=== PATIENT | male | born 1960 ===

== ENCOUNTER 2016-09-14 17:19 | Inpatient (IN) | payer BC, OTHER ==
[~2016-09-14] VITALS: Ht 177.8 cm; Wt 93.0 kg
--- NOTE | 2016-09-14 04:58 | NUR ---
PRN ATIVAN ADMINISTRATION PATIENT C/O ANXIETY, NOTE RESTLESS, VERBALIZES UNABLE TO SLEEP. PRN ATIVAN GIVEN . ZARIA 7. WILL CONTINUE TO MONITOR Addendum: 09/15/16 at 0707 by TYRESE KWONG LVN ERROR:TIME OF CHARTING
[~2016-09-14 17:19] MED LIST: CLON0.1T14 PO; DICY20TA28 PO; Gabapentin PO; HYDR-3895 PO; QUET200T PO; Sertraline Hcl PO
[2016-09-14 18:54] VITALS: BP 111/56
--- NOTE | 2016-09-14 18:54 | NUR ---
PRE-ASSESSMENT NOTE: 56 yo male admitted for ETOH dependence. VS: 111/56 P: 88 RR 18 Pulse OX: 96% T: 98.2 Pt is alert and oriented X4. Color good, skin warm and dry. Respirations even and unlabored. Pt cooperative. NKA Pt was admitted here Dec 2015. Substance use: ETOH Vodka 1 liter/day X 3 months Last use today 1 liter Vodka. Pt denies any other substance use.
--- NOTE | 2016-09-14 19:20 | NUR ---
ADMISSION NOTE RECEIVED PATIENT IN THE UNIT AT THIS TIME. PATIENT IS 56 YEAR OLD MALE WHO PRESENTS TO [facility] FOR MEDICALLY SUPERVISED WITHDRAWAL FROM ETOH DEPENDENCE. BODY CHECK DONE. SKIN INTACT. NO SKIN BREAKDOWN. LUNGS CLEAR AND BOWEL SOUNDS ACTIVE. ABDOMEN SOFT AND NON-DISTENDED. WEARS EYE GLASSES FOR READING. LAST BOWEL MOVEMENT YESTERDAY. NO DIFFICULTY URINATING. PATIENT REQUESTED TO BE FULL CODE, REGULAR DIET . NO KNOWN ALLERGIES. HEIGHT IS 5'10 AND WEIGHT IS 205 LBS. 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 PATIENT ADMITTED THAT HE NEVER DRINKS NOT UNTIL HE RETIRED FROM BEING A ELECTRIC DEICER INSPECTOR. PATIENT STATES HE DROVE HERE FROM [place]. IT TOOK HIM 7-8 DAYS. PATIENT REPORTS PMH OF ANXIETY AND DEPRESSION. NO SEIZURE HISTORY. PATIENT IS THE SOURCE OF INFORMATION. PATIENT DRINKS VODKA 1 LITER DAILY FOR 3 MONTHS. STARTED DRINKING 3 1/2 YEARS AGO. LAST DRINK WAS 1 LITER ON 09/14/16. PATIENT SMOKES 1 PACK A DAILY. PATIENT'S TREATMENT HISTORY WAS IN [facility] ON APR 30-MAY 07 AND IN [facility] . PATIENT'S PCP IS IN [place]. PATIENT APPEARS TO BE ANXIOUS DURING ADMISSION. CIWA 4. URINE DRUG SCREEN PROVIDED AND RESULTED. PATIENT IS POSITIVE OF BENZO. PATIENT STATES HE TOOK MEDICATION FOR SLEEP YESTERDAY BUT UNABLE TO RECALL THE NAME. PATIENT IS SEEN BY DR. PAGAN IN INTAKE. PLACED PATIENT ON FALL/SEIZURE PRECAUTION. PATIENT ORIENTED TO SURROUNDINGS AND HOW TO USE CALL LIGHT. SAFETY MEASURES IN PLACE. CALL LIGHT IN REACH. WILL CONTINUE TO MONITOR.
[2016-09-14] MEDS ORDERED: LOPERAMIDE HCL 2 MG CAPSULE PO PRN ×2 (19:30)
[2016-09-14] MEDS ORDERED: MIRALAX 17 GM POWD.PACK PO PRN (19:30)
[2016-09-14] MEDS ORDERED: MAG HYDROX/AL HYDROX/SIMETH 30 ML LIQUID UDC PO PRN (19:30)
[2016-09-14] MEDS ORDERED: THIAMINE HCL 200 MG/2 ML VIAL IM ONE (19:30)
[2016-09-14] MEDS ORDERED: IBUPROFEN 400 MG TABLET PO PRN (19:30)
[2016-09-14] MEDS ORDERED: DICYCLOMINE HCL 20 MG TABLET PO PRN (19:30)
[2016-09-14] MEDS ORDERED: LORAZEPAM 1 MG TABLET PO PRN ×2 (19:30)
[2016-09-14] MEDS ORDERED: MAGNESIUM HYDROXIDE 30 ML LIQUID UDC PO PRN (19:30)
[2016-09-14] MEDS ORDERED: ACETAMINOPHEN 325 MG TABLET PO PRN (19:30)
[2016-09-14] MEDS ORDERED: ONDANSETRON 4 MG/2 ML VIAL IM PRN (19:30)
[2016-09-14] MEDS ORDERED: LORAZEPAM 2 MG/1 ML VIAL IM PRN (19:30)
[2016-09-14] MEDS ORDERED: diphenhydrAMINE 50 MG CAPSULE PO PRN (19:30)
[2016-09-14] MEDS ORDERED: ONDANSETRON ODT 4 MG TAB.RAPDIS SL PRN (19:30)
[2016-09-14 19:44] LABS: *AMPHETAMINE, URINE NEGATIVE (NEGATIVE); *BARBITURATE, URINE NEGATIVE (NEGATIVE); *CANNABINOID, URINE NEGATIVE (NEGATIVE); *COCCAINE, URINE NEGATIVE (NEGATIVE); *OPIATE, URINE NEGATIVE (NEGATIVE); *PHENCYCLIDINE SCREEN,URINE NEGATIVE (NEGATIVE)
[2016-09-14] MEDS ORDERED: hydrALAZINE HCL 25 MG TABLET PO PRN (19:45)
[2016-09-14] MEDS: CLONIDINE HCL 0.1 MG TABLET PO PRN (22:06)
[2016-09-14] MEDS: HYDROXYZINE PAMOATE 25 MG CAPSULE PO PRN (22:06)
--- NOTE | 2016-09-14 22:06 | NUR ---
PRN CATAPRES AND VISTARIL ADMINISTRATION/REFUSED THIAMINE INJECTION PATIENT C.O ANXIETY , NOTED RESTLESS AND UNABLE TO SLEEP. PRN CATAPRES AND VISTARIL GIVEN. WILL MONITOR FOR EFFECTIVENESS. PATIENT REFUSED THIAMINE INJECTION. EDUCATE PATIENT ON RISKS/BENEFITS.
[2016-09-14] MEDS ORDERED: HYDROXYZINE PAMOATE 25 MG CAPSULE ONE (22:13)
[2016-09-14] MEDS ORDERED: CLONIDINE HCL 0.1 MG TABLET ONE (22:14)
[2016-09-14 23:06] LABS: BILIRUBIN,TOTAL 0.3 mg/dL (0.2-1.0); CREATININE 1.1 mg/dL (0.6-1.3); MAGNESIUM 1.9 mg/dL (1.8-2.4); POTASSIUM 3.9 mmol/L (3.5-5.1); TOTAL PROTEIN, SERUM 7.5 g/dL (6.4-8.2)
[2016-09-14 23:16] LABS: BASOPHILS # (AUTO) 0.1 K/uL (0.0-8.0); BASOPHILS % (AUTO) 0.9 % (0.0-2.0); EOSINOPHILS # (AUTO) 0.1 K/uL (0.0-0.7); EOSINOPHILS % (AUTO) 2.4 % (0.0-7.0); HEMOGLOBIN 16.9 G/DL (14.0-18.0); LYMPHOCYTES # (AUTO) 2.4 K/UL (0.8-4.8); LYMPHOCYTES % (AUTO) 41.7 % (20.5-51.5); MEAN CORPUSCULAR HEMOGLOBIN 33.3 UUG (27.0-31.0); MEAN CORPUSCULAR HGB CONC 35 g/dL (32.0-37.0); MEAN CORPUSCULAR VOLUME 94.5 FL (82.0-92.0); MONOCYTES # (AUTO) 0.5 K/UL (0.1-1.30); MONOCYTES % (AUTO) 9.6 % (0.0-11.0); NEUTROPHILS # (AUTO) 2.6 K/UL (1.8-8.9); NEUTROPHILS % (AUTO) 45.4 % (38.5-71.5); PLATELET COUNT (AUTO) 166 K/UL (150-450); RED BLOOD CELL COUNT(AUTO) 5.08 MIL/UL (4.7-6.1); WHITE BLOOD COUNT (AUTO) 5.7 K/UL (4.0-11.2)
[2016-09-14 23:17] LABS: THYROID STIMULATING HORMONE 4.691 mIU/mL (0.358-3.740)
[2016-09-14] MEDS ORDERED: MILK175C4 PO (23:53)
[2016-09-14] MEDS ORDERED: ACAM333T8 PO (23:53)
[2016-09-14] MEDS ORDERED: LEVO50TA8 PO (23:53)
[2016-09-14] MEDS ORDERED: [UNRECOGNIZED DRUG - OTHER] (23:53)
[2016-09-14] MEDS ORDERED: NALT50TA PO (23:53)
[2016-09-14] MEDS ORDERED: TRAZ-147 PO (23:53)
[2016-09-14] MEDS ORDERED: DISU250T7 PO (23:53)
[2016-09-14] MEDS ORDERED: LAMO200T PO (23:53)
[2016-09-14] MEDS ORDERED: [UNRECOGNIZED DRUG - CODE] TP (23:53)
[2016-09-14] MEDS ORDERED: IBUP200C92 PO (23:53)
[2016-09-14] MEDS ORDERED: SILD100T PO (23:53)
[2016-09-15] VITALS: BP 115/68
[2016-09-15 04:00] VITALS: BP 129/75
--- NOTE | 2016-09-15 04:58 | NUR ---
PRN ATIVAN ADMINISTRATION PATIENT C/O ANXIETY, NOTE RESTLESS, VERBALIZES UNABLE TO SLEEP. PRN ATIVAN GIVEN . CIWA 7. WILL CONTINUE TO MONITOR
[2016-09-15] MEDS ORDERED: LORAZEPAM 1 MG TABLET ONE (05:06)
--- NOTE | 2016-09-15 05:58 | NUR ---
PRN ATIVAN RE-ASSESSMENT PATIENT IN BED. PATIENT RELAXED. PER PATIENT ATIVAN HELPFUL. ANXIETY SUBSIDED. WILL CONTINUE TO MONITOR CIWA 3.
--- NOTE | 2016-09-15 07:07 | NUR ---
END OF SHIFT NOTE PATIENT IS A 56 YEAR OLD MALE, ADMITTED FOR ETOH DEPENDENCE. PATIENT IS FULL CODE, REGULAR DIET AND NO KNOWN ALLERGY. PATIENT DRINKS 1 LITER OF VODKA DAILY FOR 3 MONTHS. PATIENT WAS PLACED ON 5 DAYS ATIVAN TAPER TO START TODAY. PATIENT REPORTED PMH OF ANXIETY AND DEPRESSION. NO SEIZURE HISTORY . PATIENT WAS GIVEN PRN CLONIDINE AT 2206 ,VISTARIL AT 2206 AND ATIVAN AT 0458 DURING SHIFT. LAST CIWA 3. PATIENT COMPLIANT WITH MEDICATIONS . ON FALL/SEIZURE PRECAUTION . SAFETY MEASURES IN PLACE. REMAIN FREE OF INJURY. NO ADVERSE REACTION TO MEDICATIONS. CALL LIGHT IN REACH. WILL CONTINUE TO MONITOR. SLEPT 6 HOURS. FLUID INTAKE OF 1,050 ML. VOIDED X 1. NO BM.
--- NOTE | 2016-09-15 07:43 | NUR ---
START OF SHIFT NOTE: Received report from material handler 1st shift nurse. 56 yo male admitted 09-14-16 for ETOH dependence. Pt to start 5 day Ativan taper today. Pt is alert and oriented X4. Color good, skin warm and dry. Respirations even and unlabored. Pt resting in bed. Safety precautions observed. Call light within reach.
[2016-09-15] MEDS: FOLIC ACID 1 MG TABLET PO SCH (07:55)
[2016-09-15] MEDS: LORAZEPAM 1 MG TABLET PO SCH ×4 (07:55→21:14)
[2016-09-15] MEDS: THIAMINE HCL 100 MG TABLET PO SCH (07:56)
[2016-09-15] MEDS: MULTIVITAMINS,THERAPEUTIC TABLET PO SCH (07:56)
[2016-09-15] MEDS: GABAPENTIN 300 MG CAPSULE PO SCH ×3 (07:56→16:11)
--- NOTE | 2016-09-15 07:58 | NUR ---
VSS CIWA 7 Pt c/o anxiety, hand tremors. Pt also c/o stomach cramping. Bemtyl 20mg po prn administered.
[2016-09-15 08:00] VITALS: BP 122/82
[2016-09-15] MEDS ORDERED: TUBERCULIN,PURIF.PROT.DERIV. 5 TU/0.1 ML TEST ID ONE (09:00)
--- NOTE | 2016-09-15 09:00 | NUR ---
Pt states stomach cramping relieved by Bentyl prn
--- NOTE | 2016-09-15 12:28 | NUR ---
VSS CIWA 6 c/o tremors and anxiety
[2016-09-15 12:55] VITALS: BP 117/56
--- NOTE | 2016-09-15 16:14 | NUR ---
VSS CIWA 8 c/o anxiety and tremors
[2016-09-15 17:53] VITALS: BP 141/86
--- NOTE | 2016-09-15 18:41 | NUR ---
END OF SHIFT NOTE: Report given to maintenance technician 3rd shift nurse . 56 yo male admitted 09-14-16 for ETOH dependence. Pt started a 5 day Ativan taper today. Tolerating well. Pt is alert and oriented X4. Color good, skin warm and dry. Respirations even and unlabored. Vital signs have remained stable throughout shift. Last CIWA 8 @ 1700. Pt resting in bed. Safety precautions observed. Call light within reach.
[2016-09-15 20:00] VITALS: BP 145/84
--- NOTE | 2016-09-15 20:03 | NUR ---
START OF SHIFT NOTE Pt is a 56 y/o male admitted for ETOH dependence. Pt has NKA but reported a PMH of anxiety and depression. Per day shift nurse pt was placed on a 5 day Ativan taper and is tolerating medication well with no s/e or a/r reported. Pt received Bentyl 20 mg PO PRN during the day shift. Last CIWA: 8 (1600). At this time pt is laying in bed watching television. Pt stated " I'm okay. Kind of achy." Pt denied any other discomfort. Pt was encouraged to notify staff of any changes in condition or of any concerns. Pt verbalized an understanding. All safety measures in place. Will monitor for effectiveness.
[2016-09-15] MEDS: QUETIAPINE FUMARATE 200 MG TABLET PO SCH (21:16)
--- NOTE | 2016-09-15 21:22 | NUR ---
RN note PRN Robaxin Pt c/o generalized body aches=09/13. Contacted Dr. Miller and ordered Robaxin 750 mg PO Q8H PRN. Entered at [facility] and primary nurse to administer.
[2016-09-15] MEDS ORDERED: METHOCARBAMOL 750 MG TABLET ONE (21:36)
[2016-09-15] MEDS: METHOCARBAMOL 750 MG TABLET PO PRN (21:43)
--- NOTE | 2016-09-15 21:43 | NUR ---
ROBAXIN PRN ADMINISTRATION Pt stated " I'm having body aches. 09/13. What can I have for that?" Robaxin 750 mg PO PRN was given. Pt was encouraged to notify staff of any changes in condition or of any concerns. Pt verbalized an understanding. All safety measures in place. Will monitor for effectiveness.
[2016-09-15] MEDS: CLONIDINE HCL 0.1 MG TABLET PO PRN (21:57)
--- NOTE | 2016-09-15 21:57 | NUR ---
CLONIDINE PRN ADMINISTRATION Pt's blood pressure is 145/84. Pt denies any dizziness, blurred vision, headache, nausea, or vomiting, but reported " I feel a little uncomfortable could I have some Clonidine? Clonidine 0.1 mg PO PRN was given. Pt was encouraged to notify staff of any changes in condition or of any further concerns. Pt verbalized an understanding. All safety measures in place. Will monitor for effectiveness.
--- NOTE | 2016-09-15 22:43 | NUR ---
LOKI PRN REASSESSMENT Pt stated " I'm not aching that much anymore. I would say a 05/16." PRN effective. All safety measures in place. Will continue to monitor.
--- NOTE | 2016-09-15 22:57 | NUR ---
CLONIDINE PRN REASSESSMENT Pt's blood pressure is currently 139/81. Pt stated " I feel better." PRN effective. Pt was encouraged to notify staff of any changes in condition or of any further concerns. Pt verbalized an understanding. All safety measures in place. Will continue to monitor.
[2016-09-16] VITALS: BP 145/85
[2016-09-16] MEDS: HYDROXYZINE PAMOATE 25 MG CAPSULE PO PRN (00:55)
--- NOTE | 2016-09-16 00:55 | NUR ---
BENADRYL AND VISTARIL PRN ADMINISTRATION Pt stated " I can't sleep and I'm anxious." Benadryl 50 mg PO PRN and Vistaril 25 mg PO PRN was given. Pt was encouraged to notify staff of any changes in condition or of any concerns. Pt verbalized an understanding. All safety measures in place. Will monitor for effectiveness.
--- NOTE | 2016-09-16 01:55 | NUR ---
BENADRYL AND VISTARIL PRN REASSESSMENT Pt stated " I just fell asleep. I'm okay now." PRNS effective. Pt was encouraged to notify staff of any changes in condition or of any concerns. Pt verbalized an understanding. All safety measures in place. Will continue to monitor.
--- NOTE | 2016-09-16 04:00 | NUR ---
CIWA AND VITALS REFUSED Pt refused to be assessed and have vitals taken at this time. Pt was encouraged x 3 with risks and benefits explained, but the pt still refused. All safety measures in place. Will continue to monitor. Addendum: 09/16/16 at 0402 by GABRIEL TOMPKINS LVN Amended: Links added.
[2016-09-16] MEDS: LEVOTHYROXINE SODIUM 50 MCG TABLET PO SCH (07:00)
--- NOTE | 2016-09-16 07:14 | NUR ---
END OF SHIFT NOTE Pt is a 56 y/o male admitted for ETOH dependence. Pt has NKA but reported a PMH of anxiety and depression. Pt continues on a 5 day Ativan taper and is tolerating medication well with no s/e or a/r reported. Pt received Clonidine 0.1 mg PO PRN, Vistaril 50 mg PO PRN, Benadryl 50 mg PO PRN, and Robaxin 750 mg PO PRN during the shift. Last CIWA: 3 (1600). Pt slept for a total of 8 hours. All safety measures in place. Will endorse to the oncoming nurse.
--- NOTE | 2016-09-16 07:43 | NUR ---
Start of shift note; Received report from night nurse. Patient is a 56 year old male admitted on 09/14/16 for ETOH dependence. Patient was placed on a 5 day Ativan taper currently on his 2nd day of taper. Patient reported history of anxiety and depression. Patient's last CIWA score is 3 at 0400 per endorsement. Patient slept for 8 hours. Patient is currently resting with eyes closed, respiration even and unlabored. Patient is on a full code status, regular diet, NKA. Will continue to monitor patient.
[2016-09-16 08:00] VITALS: BP 133/86
[2016-09-16 08:09] LABS: HEPATITIS B SURFACE AG Negative (Negative)
[2016-09-16] MEDS: THIAMINE HCL 100 MG TABLET PO SCH (08:17)
[2016-09-16] MEDS: LORAZEPAM 1 MG TABLET PO SCH ×3 (08:17→20:34)
[2016-09-16] MEDS: GABAPENTIN 300 MG CAPSULE PO SCH ×4 (08:17→16:45)
[2016-09-16] MEDS: MULTIVITAMINS,THERAPEUTIC TABLET PO SCH (08:18)
[2016-09-16] MEDS: LAMOTRIGINE 200 MG TABLET PO SCH (08:18)
[2016-09-16] MEDS: SERTRALINE HCL 50 MG TABLET PO SCH (08:18)
[2016-09-16] MEDS: FOLIC ACID 1 MG TABLET PO SCH (08:18)
[2016-09-16] MEDS ORDERED: [UNRECOGNIZED DRUG - OTHER] PO SCH (09:00)
[2016-09-16 12:00] VITALS: BP 123/88
[2016-09-16 16:00] VITALS: BP 134/73
--- NOTE | 2016-09-16 18:00 | NUR ---
End of shift note; Patient is AOX4. Patient is a 56 year old male admitted on 09/14/16 for ETOH dependence. Patient was placed on a 5 day Ativan taper currently on his 2nd day of taper. Patient reported history of anxiety and depression. Patient's last CIWA score is 5 at 1600. Patient remained compliant with treatment plan. Medications were effective in reducing withdrawal symptoms. All safety measures secured. Met all needs.
[2016-09-16 20:00] VITALS: BP 125/77
--- NOTE | 2016-09-16 20:00 | NUR ---
START OF SHIFT NOTE Pt is a 56 y/o male admitted for ETOH dependence. Pt has NKA but reported a PMH of anxiety and depression. Per day shift nurse pt continues on a 5 day Ativan taper and is tolerating medication well with no s/e or a/r reported. Pt didn't receive any PRNS during the day shift. Last CIWA: 5 (1600). At this time pt is laying in bed watching television. Pt stated " I've been sleep most of the day. Im okay." Pt denies any pain/discomfort. Pt was encouraged to notify staff of any changes in condition or of any concerns. Pt verbalized an understanding. All safety measures in place; side rails up x 2, bed locked and in low position, and call light within reach Will monitor for effectiveness.
--- NOTE | 2016-09-16 20:34 | NUR ---
MOTRIN PRN ADMINISTRATION. Pt stated " My back and side hurts." Pt rated pain level 7/10. Motrin 600 mg PO PRN given. Pt was encouraged to notify staff of any changes in condition or of any concerns. Pt verbalized an understanding. All safety measures in place. Will monitor for effectiveness.
[2016-09-16] MEDS: QUETIAPINE FUMARATE 200 MG TABLET PO SCH (20:35)
--- NOTE | 2016-09-16 21:34 | NUR ---
EMELINA PRN REASSESSMENT Pt stated " The pain went away a little bit. It's about a 3/10." PRN effective. Pt was encouraged to notify staff of any changes in condition or of any concerns. Pt verbalized an understanding. All safety measures in place. Will continue to monitor.
--- NOTE | 2016-09-17 | NUR ---
CIWA AND VITALS REFUSED Pt refused to be assessed and have vitals taken at this time. Pt was encouraged x 3 with risks and benefits explained, but the pt still declined. All safety measures in place. Will continue to monitor. Addendum: 09/17/16 at 0617 by GABRIEL TOMPKINS LVN Amended: Links added.
--- NOTE | 2016-09-17 07:06 | NUR ---
END OF SHIFT NOTE Pt is a 56 y/o male admitted for ETOH dependence. Pt has NKA but reported a PMH of anxiety and depression. Pt continues on a 5 day Ativan taper and is tolerating medication well with no s/e or a/r reported. Pt received Motrin 400 mg PO PRN during the shift. Last CIWA: 5 (1999). Pt slept for a total of 8 hours. All safety measures in place. Will endorse to the oncoming nurse.
[2016-09-17] MEDS: LEVOTHYROXINE SODIUM 50 MCG TABLET PO SCH (07:12)
--- NOTE | 2016-09-17 07:38 | NUR ---
START OF SHIFT NOTE: Received report from boat buffer plastic nurse. 56 yo male admitted 09-14-16 for ETOH dependence. Pt on a 5 day Ativan taper . Tolerating well. Pt is alert and oriented X4. Color good, skin warm and dry. Respirations even and unlabored. Pt resting in bed. Safety precautions observed. Call light within reach.
--- NOTE | 2016-09-17 08:45 | NUR ---
MARTHA MANZANARESWA 4 Pt states "I feel better."
[2016-09-17] MEDS: FOLIC ACID 1 MG TABLET PO SCH (08:53)
[2016-09-17] MEDS: SERTRALINE HCL 50 MG TABLET PO SCH (08:53)
[2016-09-17] MEDS: THIAMINE HCL 100 MG TABLET PO SCH (08:53)
[2016-09-17] MEDS: LAMOTRIGINE 200 MG TABLET PO SCH (08:53)
[2016-09-17] MEDS: MULTIVITAMINS,THERAPEUTIC TABLET PO SCH (08:53)
[2016-09-17] MEDS: GABAPENTIN 300 MG CAPSULE PO SCH ×3 (08:53→17:12)
[2016-09-17] MEDS: LORAZEPAM 1 MG TABLET PO SCH ×4 (08:53→20:48)
[2016-09-17 09:06] VITALS: BP 98/65
--- NOTE | 2016-09-17 10:18 | NUR ---
Pt c/o nausea. Zofran 4mg sl given prn
[2016-09-17] MEDS ORDERED: LORAZEPAM 1 MG TABLET PO ONE (10:45)
--- NOTE | 2016-09-17 11:17 | NUR ---
Pt states nausea improved after Zofran prn
--- NOTE | 2016-09-17 12:00 | NUR ---
Ativan 1mg po prn given CIWA 7
--- NOTE | 2016-09-17 13:00 | NUR ---
Pt states less anxious after Ativan 1mg po X1
--- NOTE | 2016-09-17 14:21 | NUR ---
Therapist encouraged client to continue his daily group participation. Client stated he would attend the next group.
[2016-09-17 15:15] VITALS: BP 98/65
--- NOTE | 2016-09-17 17:00 | NUR ---
VSS CIWA 7 major complaint is anxiety
[2016-09-17 17:30] VITALS: BP 121/81
--- NOTE | 2016-09-17 18:34 | NUR ---
END OF SHIFT NOTE: Report given to material handler 2nd shift nurse. 56 yo male admitted 09-14-16 for ETOH dependence. Pt on a 5 day Ativan taper . Tolerating well. Pt is alert and oriented X4. Color good, skin warm and dry. Respirations even and unlabored. Vital signs have remained stable throughout shift. Last CIWA 7@ 1700. Pt received Zofran 4mg sl prn @ 1015. Also received extra dose of Ativan 1mg po @ 1200. Pt attended all group activities. Safety precautions observed. Call light within reach.
[2016-09-17 20:00] VITALS: BP 138/96
--- NOTE | 2016-09-17 20:04 | NUR ---
START OF SHIFT NOTE Pt is a 56 y/o male admitted for ETOH dependence. Pt has NKA but reported a PMH of anxiety and depression. Per day shift nurse pt continues on a 5 day Ativan taper and is tolerating medication well with no s/e or a/r reported. Pt received Ativan 1 mg PO x1 and Zofran 4 mg ODT PRN during the shift. Last CIWA: 7 (1600). At this time is sitting upright in bed. Pt stated " I feel okay today. I need my sheets changed." Pt denies any pain/discomfort. Linen was changed. Pt was encouraged to notify staff of any changes in condition or of any concerns. Pt verbalized an understanding. All safety measures in place; side rails up x 2, bed locked and in low position, and call light within reach Will monitor for effectiveness.
[2016-09-17] MEDS: QUETIAPINE FUMARATE 200 MG TABLET PO SCH (20:48)
[2016-09-17] MEDS: CLONIDINE HCL 0.1 MG TABLET PO PRN (20:48)
--- NOTE | 2016-09-17 20:48 | NUR ---
CLONIDINE PRN ADMINISTRATION Pt's blood pressure is currently 138/96. Pt stated " I just feel a little light headed. Can I have some Clonidine?" Clonidine 0.1 mg PO PRN was given. Pt was encouraged to notify staff of any changes in condition or of any concerns and to increase fluids and stay in bed. Pt verbalized an understanding. All safety measures in place. Will monitor for effectiveness.
--- NOTE | 2016-09-17 21:48 | NUR ---
CLONIDINE PRN REASSESSMENT Pt's blood pressure is now 130/88. Pt stated " I feel better. I've been drinking water." PRN effective. All safety measures in place. Will continue to monitor.
[2016-09-18] VITALS: BP 135/84
--- NOTE | 2016-09-18 04:00 | NUR ---
CIWA AND VITALS REFUSED Pt refused to be assessed and have vitals taken at this time. Pt was encouraged x 3 with risks and benefits explained, but the pt still refused. All safety measures in place. Will continue to monitor. Addendum: 09/18/16 at 0702 by GABRIEL TOMPKINS LVN Amended: Links added.
--- NOTE | 2016-09-18 07:04 | NUR ---
END OF SHIFT NOTE Pt is a 56 y/o male admitted for ETOH dependence. Pt has NKA but reported a PMH of anxiety and depression. Pt continues on a 5 day Ativan taper and is tolerating medication well with no s/e or a/r reported. Pt received Clonidine 0.1 mg PO PRN during the shift. Last CIWA: 2 (0000). Pt slept for a total of 8 hours. All safety measures in place. Will endorse to the oncoming nurse.
[2016-09-18] MEDS: LEVOTHYROXINE SODIUM 50 MCG TABLET PO SCH (07:15)
--- NOTE | 2016-09-18 07:59 | NUR ---
START OF SHIFT Pt 56 y/o male admitted for etoh dependence. Pt received in room on bed awake. Pt alert and oriented to name, place, and time. Perrla. Skin warm and slightly moist to touch. Respirations even and unlabored. Pt slightly anxious , with pressured speech noted. It was reported that pt slept for 8 hours last night. Bed on lowest position with side rails x2 up for safety. Call light within reach. No distress noted at this time.
[2016-09-18] MEDS: MULTIVITAMINS,THERAPEUTIC TABLET PO SCH (09:14)
[2016-09-18] MEDS: LORAZEPAM 1 MG TABLET PO SCH ×3 (09:14→21:02)
[2016-09-18] MEDS: GABAPENTIN 300 MG CAPSULE PO SCH ×3 (09:14→16:19)
[2016-09-18] MEDS: SERTRALINE HCL 50 MG TABLET PO SCH (09:14)
[2016-09-18] MEDS: THIAMINE HCL 100 MG TABLET PO SCH (09:14)
[2016-09-18] MEDS: FOLIC ACID 1 MG TABLET PO SCH (09:14)
[2016-09-18] MEDS: LAMOTRIGINE 200 MG TABLET PO SCH (09:14)
[2016-09-18 09:36] VITALS: BP 128/70
--- NOTE | 2016-09-18 11:57 | NUR ---
NSG ENTRY Pt observed walking around in hallways.
[2016-09-18 12:00] VITALS: BP 136/91
[2016-09-18 17:12] VITALS: BP 123/75
--- NOTE | 2016-09-18 18:00 | NUR ---
END OF SHIFT Pt 56 y/o male admitted for etoh dependence. Pt alert and oriented to name, place, and time. Perrla. Skin warm and slightly moist to touch. Respirations even and unlabored. Pt slightly anxious , with pressured speech noted. Pt observed isolative to room this morning, but did attend group acitivty today. Pt medication compliant and tolerated well. No ASE noted. Bed on lowest position with side rails x2 up for safety. Call light within reach. No distress noted at this time.
[2016-09-18 20:00] VITALS: BP 136/88
--- NOTE | 2016-09-18 20:00 | NUR ---
START OF SHIFT NOTE PATIENT ALERT AND ORIENTED X 4. RESPIRATION EVEN AND UNLABORED. PATIENT C/O ANXIETY. NO N/V. PATIENT DENIES ANY PAIN. PATIENT WITH FLAT AFFECT MOOD. RECEIVED REPORT FROM DAY SHIFT NURSE. PATIENT IS A 56 YEAR OLD MALE, ADMITTED FOR ETOH DEPENDENCE. PATIENT IS ON 4TH DAY OF HIS 5 DAY ATIVAN TAPER. PATIENT IS FULL CODE, REGULAR DIET AND NO KNOWN ALLERGY. UPON ADMISSION, PATIENT DRINKS 1 LITER OF VODKA DAILY FOR 3 MONTHS. PATIENT REPORTED PMH OF ANXIETY, DEPRESSION . NO SEIZURE HISTORY. SKIN INTACT. PATIENT DID NOT REQUIRE ANY PRN MEDICATION DURING THE DAY. LAST CIWA 2. SAFETY MEASURES IN PLACE. CALL LIGHT IN REACH. WILL CONTINUE TO MONITOR. Addendum: 09/19/16 at 0017 by TYRESE KWONG LVN CLARIFICATION: PATIENT C/O GENERALIZED BODY ACHES 11/13.
[2016-09-18] MEDS: QUETIAPINE FUMARATE 200 MG TABLET PO SCH (21:02)
[2016-09-18] MEDS: METHOCARBAMOL 750 MG TABLET PO PRN (21:02)
--- NOTE | 2016-09-18 21:02 | NUR ---
PRN ROBAXIN ADMINISTRATION PATIENT C/O GENERALIZED BODY ACHES 11/13. PRN ROBAXIN GIVEN. WILL MONITOR FOR EFFECTIVENESS
--- NOTE | 2016-09-18 22:02 | NUR ---
PRN ROBAXIN RE-ASSESSMENT PATIENT STATES ROBAXIN IS HELPFUL. PAIN SUBSIDED. PAIN LEVEL 2/10, TOLERABLE.
[2016-09-19] VITALS: BP 147/88
--- NOTE | 2016-09-19 04:00 | NUR ---
CIWA/VS PATIENT REFUSED VS. CIWA UNABLE TO COMPLETE. RESPIRATION EVEN AND UNLABORED. RR. 14. SAFETY MEASURES IN PLACE. CALL LIGHT IN REACH. WILL CONTINUE TO MONITOR
--- NOTE | 2016-09-19 07:11 | NUR ---
END OF SHIFT NOTE PATIENT REMAIN ALERT AND ORIENTED X 4. RESPIRATION EVEN AND UNLABORED. PATIENT C/O ANXIETY, NO N/V, GENERALIZED BODY ACHE 8/10 DURING SHIFT. PATIENT WITH FLAT AFFECT MOOD. PATIENT IS A 56 YEAR OLD MALE, ADMITTED FOR ETOH DEPENDENCE. PATIENT IS ON 4TH DAY OF HIS 5 DAY ATIVAN TAPER, TOLERATED WELL. NO ADVERSE REACTION. PATIENT IS FULL CODE, REGULAR DIET AND NO KNOWN ALLERGY. UPON ADMISSION, PATIENT DRINKS 1 LITER OF VODKA DAILY FOR 3 MONTHS. PATIENT REPORTED PMH OF ANXIETY, DEPRESSION . NO SEIZURE HISTORY. SKIN INTACT. PATIENT COMPLAINT WITH MEDICATION AND TREATMENT PLAN. REMAIN FREE OF INJURY. VS WNL. PATIENT WAS GIVEN PRN ROBAXIN AT 2102. LAST CIWA 1 . SAFETY MEASURES IN PLACE. CALL LIGHT IN REACH. WILL CONTINUE TO MONITOR. SLEPT 7 HOURS. FLUID INTAKE 947 ML. VOIDED X 2 . NO BM
--- NOTE | 2016-09-19 07:12 | NUR ---
Start of Shift Notes: Received patient in his room. Alert and oriented x 4. Able to make needs known. Respirations even and unlabored. No SOB noted. Skin warm and dry to touch. Abdomen soft and non-distended with (+) BS in all 4 quadrants. No complains of N/V/D or constipation noted. Voids independently with steady gait. Patient is a 56 year old male admitted for ETOH dependence who was placed on a 5-day Ativan taper as ordered. No adverse reactions noted. Has past medical hx of anxiety and depression. Educated patient on his current plan of care for the day and his medication regimen. Encouraged oral fluid intake and encouraged group participation to learn new skills to prevent relapse.
[2016-09-19] MEDS: LEVOTHYROXINE SODIUM 50 MCG TABLET PO SCH (07:25)
[2016-09-19 08:00] VITALS: BP 104/64
[2016-09-19] MEDS: MULTIVITAMINS,THERAPEUTIC TABLET PO SCH (08:49)
[2016-09-19] MEDS: SERTRALINE HCL 50 MG TABLET PO SCH (08:49)
[2016-09-19] MEDS: FOLIC ACID 1 MG TABLET PO SCH (08:49)
[2016-09-19] MEDS: GABAPENTIN 300 MG CAPSULE PO SCH ×3 (08:49→16:41)
[2016-09-19] MEDS: THIAMINE HCL 100 MG TABLET PO SCH (08:49)
[2016-09-19] MEDS: LAMOTRIGINE 200 MG TABLET PO SCH (08:49)
[2016-09-19] MEDS: LORAZEPAM 1 MG TABLET PO SCH ×2 (08:49→20:41)
[2016-09-19 12:00] VITALS: BP 104/64
--- NOTE | 2016-09-19 15:02 | NUR ---
Therapist advised client of group times. Client said he would attend all of them.
[2016-09-19 16:00] VITALS: BP 112/77
--- NOTE | 2016-09-19 18:55 | NUR ---
End of Shift Notes: Patient is a 56 year old male admitted for ETOH dependence who was placed on a 5-day Ativan taper as ordered. No adverse reactions noted. Patient is tolerating taper well. Prior to admission, patient was using 1L of Vodka daily x 3 months. VS monitored closely q 4 hours. No significant abnormalities noted. Withdrawal symptoms were closely monitored. Initial CIWA 1, patient presented with mild tremors and sweating. Last CIWA 2. Per patient, Ativan has been helping him with his withdrawal symptoms. Participated in group and activities. Compliant with care and treatment. On fall and seizure precautions. Will continue to monitor closely.
[2016-09-19 20:00] VITALS: BP 121/70
--- NOTE | 2016-09-19 20:00 | NUR ---
START OF SHIFT NOTE PATIENT IN HIS ROOM, PATIENT PRESENTS FLAT AFFECT MOOD. PATIENT C/O ANXIETY, PAIN ON RIGHT SIDE OF BODY 09/13. NO N/V. PATIENT STATES HE DID NOT GO TO ANY GROUPS. PATIENT ENCOURAGED TO ATTEND AND TO PARTICIPATE. RECEIVED REPORT FROM DAY SHIFT NURSE. PATIENT IS A 56 YEAR OLD MALE, ADMITTED FOR ETOH DEPENDENCE. PATIENT IS ON 5TH DAY OF HIS 5 DAY ATIVAN TAPER. PATIENT IS FULL CODE, REGULAR DIET AND NO KNOWN ALLERGY. UPON ADMISSION, PATIENT DRINKS 1 LITER OF VODKA DAILY FOR 3 MONTHS. PATIENT REPORTED PMH OF ANXIETY, DEPRESSION . NO SEIZURE HISTORY. SKIN INTACT. PATIENT DID NOT REQUIRE ANY PRN MEDICATION DURING THE DAY. LAST CIWA 2. SAFETY MEASURES IN PLACE. CALL LIGHT IN REACH. WILL CONTINUE TO MONITOR.
[2016-09-19] MEDS: METHOCARBAMOL 750 MG TABLET PO PRN (20:41)
[2016-09-19] MEDS: QUETIAPINE FUMARATE 200 MG TABLET PO SCH (20:41)
--- NOTE | 2016-09-19 20:41 | NUR ---
PRN ROBAXIN ADMINISTRATION PATIENT C/O PAIN ON RIDE SIDE OF BODY 09/13. PRN ROBAXIN GIVEN. WILL MONITOR EFFECTIVENESS
--- NOTE | 2016-09-19 20:41 | NUR ---
PRN ROBAXIN RE-ASSESSMENT PATIENT ROBAXIN HELPFUL.PAIN SUBSIDED 2/10, TOLERABLE. WILL CONTINUE TO MONITOR.
[2016-09-20] VITALS: BP 115/72
[2016-09-20 04:00] VITALS: BP 109/67
[2016-09-20] MEDS: LEVOTHYROXINE SODIUM 50 MCG TABLET PO SCH (06:12)
--- NOTE | 2016-09-20 07:07 | NUR ---
END OF SHIFT NOTE PATIENT REMAIN ALERT AND ORIENTED X 4. RESPIRATION EVEN AND UNLABORED. PATIENT REMAIN STABLE. PATIENT PRESENTS FLAT AFFECT MOOD. PATIENT C/O ANXIETY, PAIN ON RIGHT SIDE OF BODY 09/13. NO N/V. PATIENT STATES HE DID NOT GO TO ANY GROUPS DURING SHIFT. PATIENT ENCOURAGED TO ATTEND AND TO PARTICIPATE. PATIENT IS A 56 YEAR OLD MALE, ADMITTED FOR ETOH DEPENDENCE. PATIENT IS ON 5TH DAY OF HIS 5 DAY ATIVAN TAPER, TOLERATED WELL. NO ADVERSE REACTION. PATIENT IS FULL CODE, REGULAR DIET AND NO KNOWN ALLERGY. UPON ADMISSION, PATIENT DRINKS 1 LITER OF VODKA DAILY FOR 3 MONTHS. PATIENT REPORTED PMH OF ANXIETY, DEPRESSION . NO SEIZURE HISTORY. SKIN INTACT. PATIENT WAS GIVEN PRN ROBAXIN AT 2040 . LAST CIWA 1 AT 0400. PATIENT COMPLIANT WITH MEDICATIONS. SAFETY MEASURES IN PLACE. CALL LIGHT IN REACH. WILL CONTINUE TO MONITOR. SLEPT 8 HOURS. FLUID INTAKE 1,148 ML. VOIDED X 3. NO BM .
--- NOTE | 2016-09-20 07:08 | NUR ---
Start of Shift Notes: Received patient in his room. Alert and oriented x 4. Able to make needs known. Respirations even and unlabored. No SOB noted. Skin warm and dry to touch. Abdomen soft and non-distended with (+) BS in all 4 quadrants. No complains of N/V/D or constipation noted. Voids independently with steady gait. Patient is a 56 year old male admitted for ETOH dependence who was placed on a 5-day Ativan taper as ordered. No adverse reactions noted. Has past medical hx of anxiety and depression. Educated patient on his current plan of care for the day and his medication regimen. Encouraged oral fluid intake and encouraged group participation to learn new skills to prevent relapse. PRN Robaxin given during the night. Slept for 8 hours.
[2016-09-20 08:00] VITALS: BP 100/58
[2016-09-20] MEDS: GABAPENTIN 300 MG CAPSULE PO SCH ×3 (08:32→16:18)
[2016-09-20] MEDS: SERTRALINE HCL 50 MG TABLET PO SCH (08:32)
[2016-09-20] MEDS: MULTIVITAMINS,THERAPEUTIC TABLET PO SCH (08:32)
[2016-09-20] MEDS: LAMOTRIGINE 200 MG TABLET PO SCH (08:32)
[2016-09-20] MEDS: FOLIC ACID 1 MG TABLET PO SCH (08:32)
[2016-09-20] MEDS: THIAMINE HCL 100 MG TABLET PO SCH (08:32)
[2016-09-20 12:00] VITALS: BP 122/72
--- NOTE | 2016-09-20 13:00 | NUR ---
Mid Shift Notes: CIWA 0. Patient is in his room, eating his lunch. No s/s of discomfort noted.
[2016-09-20 16:00] VITALS: BP 123/77
--- NOTE | 2016-09-20 18:47 | NUR ---
End of Shift Notes: Patient is a 56 year old male admitted for ETOH dependence who was placed on a 5-day Ativan taper as ordered. No adverse delayed reactions noted. Patient is tolerating taper well. Completed taper today and will be discharging tomorrow. UDS pending. Prior to admission, patient was using 1L of Vodka daily x 3 months. VS monitored closely q 4 hours. No significant abnormalities noted. Withdrawal symptoms were closely monitored. Initial CIWA 0, patient presented with mild tremors and sweating. Last CIWA 0.. Participated in group and activities. Compliant with care and treatment. On fall and seizure precautions. Will continue to monitor closely.
[2016-09-20 20:00] VITALS: BP 123/83
--- NOTE | 2016-09-20 20:00 | NUR ---
START OF SHIFT NOTE PATIENT ALERT AND ORIENTED X 4. RESPIRATION EVEN AND UNLABORED. NO N/V. NO SWEATING. NO TREMORS. PATIENT STATES HES ANXIOUS BUT OTHERWISE ALRIGHT. PATIENT AWARE HES LEAVING TOMORROW. RECEIVED REPORT FROM DAY SHIFT NURSE. PATIENT IS A 56 YEAR OLD MALE, ADMITTED FOR ETOH DEPENDENCE. PATIENT COMPLETED HIS 5 DAY ATIVAN TAPER, TOLERATED WELL. NO ADVERSE REACTION. PATIENT IS MEDICALLY CLEARED TO BE DISCHARGE TOMORROW. PATIENT IS FULL CODE, REGULAR DIET AND NO KNOWN ALLERGY. UPON ADMISSION, PATIENT DRINKS 1 LITER OF VODKA DAILY FOR 3 MONTHS. PATIENT REPORTED PMH OF ANXIETY, DEPRESSION . NO SEIZURE HISTORY. SKIN INTACT. PATIENT DID NOT REQUIRE ANY PRN MEDICATION DURING THE DAY. LAST CIWA 0. SAFETY MEASURES IN PLACE. CALL LIGHT IN REACH. WILL CONTINUE TO MONITOR.
[2016-09-20 21:39] LABS: *AMPHETAMINE, URINE NEGATIVE (NEGATIVE); *BARBITURATE, URINE NEGATIVE (NEGATIVE); *CANNABINOID, URINE NEGATIVE (NEGATIVE); *COCCAINE, URINE NEGATIVE (NEGATIVE); *OPIATE, URINE NEGATIVE (NEGATIVE); *PHENCYCLIDINE SCREEN,URINE NEGATIVE (NEGATIVE)
[2016-09-20] MEDS: QUETIAPINE FUMARATE 200 MG TABLET PO SCH (22:00)
[2016-09-20] MEDS: CLONIDINE HCL 0.1 MG TABLET PO PRN (22:00)
[2016-09-20] MEDS: HYDROXYZINE PAMOATE 25 MG CAPSULE PO PRN (22:00)
--- NOTE | 2016-09-20 22:00 | NUR ---
PRN VISTARIL AND CATAPRES ADMINISTRATION PATIENT C/O ANXIETY. PRN CATAPRES AND VISTARIL GIVEN. WILL MONITOR FOR EFFECTIVENESS
--- NOTE | 2016-09-20 23:00 | NUR ---
PRN VISTARIL AND CATAPRES RE-ASSESSMENT PATIENT STATES HE FEELS BETTER. VISTARIL AND CATAPRES HELPFUL. ANXIETY SUBSIDED. WILL CONTINUE TO MONITR.
[2016-09-21] VITALS: BP 111/70
[2016-09-21 04:00] VITALS: BP 103/65
[2016-09-21] MEDS: LEVOTHYROXINE SODIUM 50 MCG TABLET PO SCH (06:28)
--- NOTE | 2016-09-21 07:17 | NUR ---
END OF SHIFT NOTE PATIENT REMAIN ALERT AND ORIENTED X 4. RESPIRATION EVEN AND UNLABORED. NO N/V, NO SWEATING , NO TREMORS, PATIENT STATES HES ANXIOUS BUT OTHERWISE ALRIGHT DURING SHIFT . PATIENT AWARE HES LEAVING TODAY. PATIENT IS A 56 YEAR OLD MALE, ADMITTED FOR ETOH DEPENDENCE. PATIENT COMPLETED HIS 5 DAY ATIVAN TAPER, TOLERATED WELL. NO ADVERSE REACTION. PATIENT IS MEDICALLY CLEARED TO BE DISCHARGE TODAY. PATIENT IS FULL CODE, REGULAR DIET AND NO KNOWN ALLERGY. UPON ADMISSION, PATIENT DRINKS 1 LITER OF VODKA DAILY FOR 3 MONTHS. PATIENT REPORTED PMH OF ANXIETY, DEPRESSION . NO SEIZURE HISTORY. SKIN INTACT. PATIENT WAS GIVEN PRN VISTARIL AND CLONIDINE AT 2200. . LAST CIWA 0. PATIENT COMPLIANT WITH MEDICATION. REMAIN FREE OF INJURY . SAFETY MEASURES IN PLACE. CALL LIGHT IN REACH. WILL CONTINUE TO MONITOR. SLEPT 7 HOURS. FLUID INTAKE 855 ML. VOIDED X 3. NO BM.
--- NOTE | 2016-09-21 07:50 | NUR ---
START OF SHIFT Client is a 56 year old male admitted for ETOH withdrawal, he completed a 5-day Ativan taper . No adverse delayed reactions noted. He will be discharging this am. Prior to admission, patient was using 1L of Vodka daily x 3 months. VS monitored closely q 4 hours. No significant abnormalities noted. Withdrawal symptoms were closely monitored. Last CIWA 0, Client presented with some anxiety. He stated, "I am good to go" when discharge instructions reviewed. Call light within reach. Will continue to monitor closely.
[2016-09-21 08:35] VITALS: BP 111/73
[2016-09-21] MEDS: MULTIVITAMINS,THERAPEUTIC TABLET PO SCH (08:41)
[2016-09-21] MEDS: FOLIC ACID 1 MG TABLET PO SCH (08:41)
[2016-09-21] MEDS: THIAMINE HCL 100 MG TABLET PO SCH (08:41)
[2016-09-21] MEDS: SERTRALINE HCL 50 MG TABLET PO SCH (08:41)
[2016-09-21] MEDS: LAMOTRIGINE 200 MG TABLET PO SCH (08:41)
[2016-09-21] MEDS: GABAPENTIN 300 MG CAPSULE PO SCH (08:41)
--- NOTE | 2016-09-21 09:37 | NUR ---
DISCHARGE NOTE Client was admitted for alcohol withdrawal. Last CIWA-1. Client denies any pain or discomfort. Client denies any SI/HI ideation. Vital signs stable. Client states that he feels ready for discharge. Client medications, discharge instructions and valuables secures in duffle bag and then given to GRAPHICS MANAGER. All belongings returned to client. Client verbalized his discharge instructions, ID band removed, client ambulated off of the unit. Client left via [facility] to [facility] in stable condition.
--- NOTE | 2016-09-21 11:48 | NUR ---
START OF SHIFT Client is a 56 year old male admitted for ETOH withdrawal, he completed a 5-day Ativan taper . No adverse delayed reactions noted. He will be discharging this am. Prior to admission, patient was using 1L of Vodka daily x 3 months. VS monitored closely q 4 hours. No significant abnormalities noted. Withdrawal symptoms were closely monitored. Last CIWA 0, Client presented with some anxiety. He stated, "I am good to go" when discharge instructions reviewed. Call light within reach. Will continue to monitor closely. Addendum: 09/21/16 at 1159 by JOHN PAUL WHEELER RN DUPLICATE ENTRY
== END 2016-09-21 09:37 | disposition home or self-care (01) | DRG 895 ==
LOC: SRC 17:53
PROVIDERS: ADMIT Internal Medicine; ATTEND Internal Medicine
PROC: HZ2ZZZZ Detoxification Services for Substance Abuse Treatment (ICD-10-PCS; principal; 2016-09-14)
PROC: HZ41ZZZ Group Counseling for Substance Abuse Treatment, Behavioral (ICD-10-PCS; 2016-09-17)
PROC: HZ31ZZZ Individual Counseling for Substance Abuse Treatment, Behavioral (ICD-10-PCS; 2016-09-17)
DX: F10.230 Alcohol dependence with withdrawal, uncomplicated (principal); F31.5 Bipolar disorder, current episode depressed, severe, with psychotic features; Y90.6 Blood alcohol level of 120-199 mg/100 ml; Z83.3 Family history of diabetes mellitus; Z80.3 Family history of malignant neoplasm of breast; F17.210 Nicotine dependence, cigarettes, uncomplicated; F41.9 Anxiety disorder, unspecified; E66.9 Obesity, unspecified; Z68.29 Body mass index [BMI] 29.0-29.9, adult; I15.9 Secondary hypertension, unspecified; E03.9 Hypothyroidism, unspecified; G47.00 Insomnia, unspecified; Z79.899 Other long term (current) drug therapy; R73.9 Hyperglycemia, unspecified
CPT/HCPCS: 36415; 70030-TC; 80307; 80346; 83690; 83735; 84443; 85025; 86592; 86705; 86803; 87340; 87806; A4663; G0480; J3411; Q0162; Q0163